=== PATIENT | female | born 1945 | race Caucasian/White ===

== ENCOUNTER 2018-02-05 10:10 | Outpatient (CLI) | payer MEDICARE, MEDICAID ==
--- NOTE | 2018-02-05 11:38 | CT ---
HEAD CT WITHOUT CONTRAST: HISTORY: Followup intracerebral hemorrhage. COMPARISON: None. TECHNIQUE: Noncontrast head CT is performed from the skull base to the skull vertex. FINDINGS: There appears to be diffuse malacic and gliottic change involving the left cerebrum, compatible with an MCA distribution and to a lesser extent KAROL distribution infarction. There is ex vacuo dilatation of the left ventricular system No acute parenchymal hemorrhage or extraaxial hematoma. No midline shift. Basilar cisterns are patent. There are chronic small-vessel ischemic changes of the white ma tter. Right cerebral cortical douglas-white matter differentiation is preserved. Malacic change involving the left douglas matter structures. Calvarium is intact. Adequate aeration of the sinuses and mastoid air cells. Cavernous carotid athe rosclerosis. IMPRESSION: 1. No intracranial hemorrhage 2. 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 POS: [facility]
== END 2018-02-05 10:11 | disposition home or self-care (01) ==
LOC: TBSIIMAG 10:10
PROVIDERS: ATTEND Surgery
DX: I61.9 Nontraumatic intracerebral hemorrhage, unspecified (principal)
CPT/HCPCS: 70450